=== PATIENT | female | born 1980 | race Caucasian/White ===

== ENCOUNTER → 2017-06-20 | Outpatient (CLI) | payer OTHER ==
[2017-06-20 12:40] LABS: HCT (SEDRATE) 41.1 % (34.6-47.8)
[2017-06-20 13:01] LABS: % IRON SATURATION 13 % (20-55); IRON LEVEL 50 mcg/dL (50-170); TOTAL IRON BINDING CAPACITY 372 mcg/dL (250-450)
[2017-06-20 13:05] LABS: C-REACTIVE PROTEIN, QUANT < 0.02 mg/dL (0.02-0.49)
== END | disposition home or self-care (01) ==
LOC: CFH 10:26
PROVIDERS: ATTEND Internal Medicine Gastroenterology
DX: Z13.820 Encounter for screening for osteoporosis (principal); K62.5 Hemorrhage of anus and rectum; K90.0 Celiac disease; F50.00 Anorexia nervosa, unspecified; F50.2 Bulimia nervosa; F12.90 Cannabis use, unspecified, uncomplicated; Z68.1 Body mass index [BMI] 19.9 or less, adult
CPT/HCPCS: 36415; 77080; 82525; 82728; 83540; 83550; 84425; 84446; 84590; 84630; 85651; 86140

== ENCOUNTER 2020-01-21 15:14 | Emergency (ER) | payer OTHER ==
[~2020-01-21] VITALS: Ht 170.2 cm; Wt 54.2 kg
[2020-01-21] MEDS ORDERED: KETOROLAC 30 MG/1 ML ONE (15:56)
--- NOTE | 2020-01-21 15:57 | NUR ---
THIS IS A 39 YO FEMALE COMING TO ED 7 DAYS POST OP (VAGINAL POLYP REMOVAL), HAS NOT HAD BM SINCE THEN. DIFFUSE ABDOMINAL PAIN AND VAGINAL PAIN OVER THE PAST WEEK WITH OCCASIONAL VOMITING. PATIENT HAS USED MIRALAX AT HOME WITH NO RELIEF. HX CELIAC DISEASE. MONITORING IN PLACE, VSS, NADN. CALL LIGHT IN REACH. PATIENT TO XRAY
[2020-01-21] MEDS ORDERED: KETOROLAC 30 MG/1 ML IM ONE (16:00)
[2020-01-21 16:28] VITALS: BP 118/80
--- NOTE | 2020-01-21 16:28 | NUR ---
ALL RESULTS BACK, PATIENT UP FOR RECHECK
--- NOTE | 2020-01-21 16:33 | NUR ---
ERP IN ROOM DISCUSSING POC WITH PATIENT
[2020-01-21] MEDS ORDERED: MAGNESIUM CITRATE 300ML ORAL SOL ONE (17:11)
--- NOTE | 2020-01-21 17:20 | NUR ---
Patient given discharge instructions and they have confirmed that they understand the instructions, given magnesium citrate to go and instructions on if/when to come back. Patient ambulatory with steady gait to discharge.
[2020-01-21] MEDS ORDERED: MAGNESIUM CITRATE 300ML ORAL SOL PO ONE (17:30)
== END 2020-01-21 17:25 | disposition home or self-care (01) ==
LOC: ED 15:59
DX: K59.00 Constipation, unspecified (principal); R10.84 Generalized abdominal pain
CPT/HCPCS: 74021; 99283